=== PATIENT | female | born 1985 | race Two or more races ===

== ENCOUNTER 2023-09-03 13:44 | Day surgery (SDC) | payer MEDICAID ==
[~2023-09-03] VITALS: Ht 154.9 cm; Wt 50.0 kg
[2023-09-03 14:46] LABS: Alanine Aminotransferase 26 U/L (7-40); Albumin 4.1 g/dL (3.2-4.8); Alkaline Phosphatase 95 U/L (46-116); Anion Gap 6 (5-15); Aspartate Aminotransferase 16 U/L (13-40); BUN/Creatinine Ratio 9.2 (10.0-20.0); Bilirubin, Total 0.5 mg/dL (0.2-1.0); Blood Urea Nitrogen 6 mg/dL (9-23); Calcium 9.5 mg/dL (8.7-10.4); Carbon Dioxide 28 mmol/L (20-30); Chloride 100 mmol/L (98-107); Glucose 113 mg/dL (74-106); Sodium 134 mmol/L (136-145); Total Protein 6.4 g/dL (5.7-8.2)
[2023-09-03 15:10] LABS: Basophils # (auto) 0.1 10 ^3/uL (0-0.2); Basophils % (auto) 0.5 % (0.0-2.0); Eosinophils # (auto) 0.1 10 ^3/uL (0-0.8); Hematocrit 38.5 % (36.0-46.0); Hemoglobin 13.2 g/dL (12.2-16.2); Lymphocytes # (auto) 1.8 10 ^3/uL (0.4-5.4); Lymphocytes % (auto) 14.7 % (10.0-50.0); Mean Corpuscular Hgb Conc. 34.4 g/dL (32.0-36.0); Monocytes # (auto) 0.9 10 ^3/uL (0-1.3); Monocytes % (auto) 7.2 % (0.0-12.0); Neutrophils # (auto) 9.6 10 ^3/uL (1.6-8.6); Neutrophils % (auto) 76.6 % (37.0-80.0); Red Blood Cells 4.01 10^6/uL (4.0-5.20); Red Cell Distribution Width 11.9 % (11.8-14.3); White Blood Cell 12.5 10^3/uL (4.4-10.8)
[2023-09-03 16:50] LABS: Urine Bacteria MANY /hpf (None Seen); Urine Blood 3+ /uL (Negative); Urine Clarity CLOUDY (Clear); Urine Color Red (Yellow); Urine Protein, UAD 2+ (Negative); Urine Urobilinogen Normal (Negative); Urine WBC 36 /hpf (0 - 5)
[2023-09-03] MEDS ORDERED: LACT. RINGERS/OXYTOCIN 20UNITS 1,000 ML IV ONE ×2 (17:00→17:15)
[2023-09-03 17:01] LABS: Urine Specific Gravity 1.015 (1.001-1.035)
[2023-09-03 17:48] VITALS: PULSE 78; RESP 19; O2SAT 100
[2023-09-03] MEDS ORDERED: fentaNYL CITRATE 100 MCG/2 ML VL ONE (18:07)
[2023-09-03] MEDS ORDERED: PROPOFOL 10 MG/ML 20 ML IV ONE (18:07)
[2023-09-03] MEDS ORDERED: MIDAZOLAM HCL 2MG/2ML 2ml VIAL (1mg/ml) ONE (18:07)
[2023-09-03] MEDS ORDERED: ONDANSETRON HCL 4 MG/2 ML VIAL ONE (18:07)
[2023-09-03] MEDS ORDERED: ceFAZolin 1GM/50ML 100 ML IV ONE (18:12)
[2023-09-03 18:29] LABS: Alanine Aminotransferase 50 U/L (7-40); Alkaline Phosphatase 97 U/L (46-116)
[2023-09-03 18:30] LABS: Anion Gap 7 (5-15); Aspartate Aminotransferase 78 U/L (13-40); BUN/Creatinine Ratio 13.2 (10.0-20.0); Bilirubin, Total 0.8 mg/dL (0.2-1.0); Blood Urea Nitrogen 7 mg/dL (9-23); Calcium 9.1 mg/dL (8.7-10.4); Carbon Dioxide 24 mmol/L (20-30); Chloride 100 mmol/L (98-107); Glucose 107 mg/dL (74-106); Potassium 3.6 mmol/L (3.5-5.1); Sodium 131 mmol/L (136-145); Total Protein 6.3 g/dL (5.7-8.2)
[2023-09-03 18:40] VITALS: TEMP 97.1; O2SAT 99
[2023-09-03] MEDS ORDERED: RHO (D) IMMUNE GLOBULIN 300 MCG INJ IM PRN (18:45)
[2023-09-03] MEDS ORDERED: HYDROmorphone HCL 2 MG/ML VL/or syr IV PRN (18:45)
[2023-09-03] MEDS ORDERED: ePHEDrine SULFATE 50 MG/ML AMP IV PRN (18:45)
[2023-09-03] MEDS ORDERED: METOCLOPRAMIDE HCL 5MG/ml INJ 2ml VIAL IV PRN (18:45)
[2023-09-03 18:56] LABS: INR 1.02 (0.9-1.15); Partial Thromboplastin Time 24.5 SEC (24.5-34.5); Prothrombin Time 10.7 sec (9.3-11.8)
[2023-09-03 19:40] VITALS: BP 131/76; PULSE 83; RESP 13; O2SAT 100
== END 2023-09-03 19:45 | disposition home or self-care (01) ==
LOC: ER 13:44 → SUR 17:49
PROVIDERS: ATTEND Obstetrics & Gynecology
DX: O03.4 Incomplete spontaneous abortion without complication (principal); B20 Human immunodeficiency virus [HIV] disease; Z98.891 History of uterine scar from previous surgery
CPT/HCPCS: 36415; 59812; 76801; 80053; 81001; 84702; 85025; 85610; 85730; 86850; 86900; 86901; 88307; 88342; J0690; J2250; J2405; J2590; J2704; J3010; 96365